=== PATIENT | male | born 1995 | race Caucasian/White ===

== ENCOUNTER 2017-09-10 15:40 | Outpatient (CLI) | payer OTHER ==
--- NOTE | 2017-09-10 18:21 | RAD ---
RIGHT FOOT THREE VIEWS 09/10/17 No fracture or periosteal reaction was seen. All bony structures appeared intact. IMPRESSION: No acute findings. POS: HOME
== END 2017-09-10 15:41 | disposition home or self-care (01) ==
LOC: BURRAD 15:40
DX: S99.921A Unspecified injury of right foot, initial encounter (principal)

== ENCOUNTER 2017-11-09 21:34 | Emergency (ER) | payer OTHER, SELFPAY ==
[2017-11-09] MEDS ORDERED: Dexamethasone 4 mg/ml Vial ONE (21:45)
[2017-11-09] MEDS ORDERED: Ibuprofen 200 MG TAB ONE (21:45)
[2017-11-09] MEDS ORDERED: AMOXicillin 250 MG CAP ONE (21:45)
== END 2017-11-09 21:35 | disposition home or self-care (01) ==
LOC: BURERS 21:34
DX: J03.90 Acute tonsillitis, unspecified (principal); F17.210 Nicotine dependence, cigarettes, uncomplicated; Z79.899 Other long term (current) drug therapy
CPT/HCPCS: 99282; J1100

== ENCOUNTER 2019-10-23 20:00 | Emergency (ER) | payer SELFPAY | END 2019-10-23 20:27 | disposition home or self-care (01) | LOC: BURERS 20:00 | DX: S30.812A Abrasion of penis, initial encounter (principal); N48.5 Ulcer of penis; F17.210 Nicotine dependence, cigarettes, uncomplicated; X58.XXXA Exposure to other specified factors, initial encounter | CPT/HCPCS: 99282 ==

== ENCOUNTER 2019-10-30 00:01 | Emergency (ER) | payer SELFPAY ==
[2019-10-30] MEDS ORDERED: Doxycycline 100 MG CAP ONE (00:20)
[2019-10-30 15:32] LABS: Syphilis Antibody Index 5.87 S/CO (<1.00 Non-Reactive)
[2019-10-30 18:12] LABS: Syphilis Antibody INDETERMINATE (Nonreactive)
== END 2019-10-30 00:34 | disposition home or self-care (01) ==
LOC: BURERS 00:01
DX: A51.0 Primary genital syphilis (principal); F17.210 Nicotine dependence, cigarettes, uncomplicated
CPT/HCPCS: 86593; 86780; 99283

== ENCOUNTER 2020-06-19 19:49 | Emergency (ER) | payer SELFPAY ==
[2020-06-19 20:21] LABS: Mean Corpuscular Hemoglobin 30.4 pg (27.0-31.0); Mean Corpuscular Volume 92.1 fL (78.0-98.0); Mean Platelet Volume 12.3 fL (7.4-10.4); Platelet Count 178 thou/uL (130-400); RBC Distribution Width 12.8 % (11.5-14.5); Red Blood Cell (RBC) Count 5.26 mill/uL (4.70-6.10); White Blood Cell (WBC) Count 17.9 thou/uL (4.8-10.8)
[2020-06-19] MEDS ORDERED: Morphine 4 MG/ML VIAL ONE (20:21)
[2020-06-19] MEDS ORDERED: Morphine 2 MG/ML VIAL ONE (20:21)
[2020-06-19 20:39] LABS: ALT (SGPT) 49 U/L (8-55); AST (SGOT) 29 U/L (5-34); Albumin 4.2 g/dL (3.5-5.0); Alkaline Phosphatase 80 U/L (40-110); Anion Gap 15 mmol/L (10-20); BUN (Urea Nitrogen) 12 mg/dL (8.9-20.6); Bilirubin, Total 0.2 mg/dL (0.2-1.2); Calc. Creatinine Clearance 0 mL/min (70-130); Calcium 9.4 mg/dL (7.8-10.44); Carbon Dioxide 28 mmol/L (22-29); Chloride 102 mmol/L (98-107); Globulin 2.4 g/dL (2.4-3.5); Glucose 79 mg/dL (70-105); Potassium 4.4 mmol/L (3.5-5.1); Protein, Total 6.6 g/dL (6.0-8.3); Sodium 141 mmol/L (136-145)
[2020-06-19 20:45] LABS: #Basophils 0.2 thou/uL (0.0-0.2); #Eosinphils 0.3 thou/uL (0.0-0.7); #Lymphocytes 2.2 thou/uL (1.20-3.40); #Monocytes 1.2 thou/uL (0.11-0.59); #Neutrophils 13.9 thou/uL (1.40-6.50); %Eosinophils 1.8 % (0.0-10.0); %Lymphocytes 12.6 % (21.0-51.0); %Monocytes 6.7 % (0.0-10.0); %Neutrophils 77.9 % (42.0-75.0); Large Platelets SLIGHT; MDiff Complete? YES; Platelet Morphology Comment Appears Adequate; RBC Morphology Normal
[2020-06-19] MEDS ORDERED: Bacitracin 1 PK ONE (21:17)
== END 2020-06-19 21:40 | disposition home or self-care (01) ==
LOC: BURERS 19:49
DX: S09.90XA Unspecified injury of head, initial encounter (principal); S93.602A Unspecified sprain of left foot, initial encounter; S50.02XA Contusion of left elbow, initial encounter; S50.01XA Contusion of right elbow, initial encounter; F17.210 Nicotine dependence, cigarettes, uncomplicated; V89.2XXA Person injured in unspecified motor-vehicle accident, traffic, initial encounter
CPT/HCPCS: 36415; 70450; 71045; 72125; 80053; 85025; 96372; J2270

== ENCOUNTER 2020-08-03 06:52 | Emergency (ER) | payer SELFPAY ==
[2020-08-03] MEDS ORDERED: Cephalexin 250 MG CAP ONE (07:24)
[2020-08-03] MEDS ORDERED: HYDROcodone/Acetaminophen 5/325 mg Tablet ONE (07:24)
[2020-08-03] MEDS ORDERED: Sulfameth/Trimethoprim DS 800-160mg TAB ONE (07:24)
== END 2020-08-03 07:28 | disposition home or self-care (01) ==
LOC: BURERS 06:52
DX: H60.11 Cellulitis of right external ear (principal); F17.210 Nicotine dependence, cigarettes, uncomplicated

== ENCOUNTER 2022-06-27 14:08 | Emergency (ER) | payer SELFPAY ==
[~2022-06-27 14:08] MED LIST: Iopamidol 370 76% 100 ML VIAL ONE
[2022-06-27 14:50] LABS: Bilirubin Negative (Negative); Blood, Urine Moderate (Negative); Clarity Clear (Clear); Glucose, Urine (Dipstick) Negative (Negative); Ketone, Urine Negative (Negative); Leukocyte Negative (Negative); Nitrite Negative (Negative); Protein, Urine (Dipstick) Negative (Neg-Trace); Specific Gravity, Urine 1.015 (1.005-1.030); Urobilinogen 0.2 mg/dL (Less than 2); pH, Urine 6.5 (5.0-9.0)
[2022-06-27 14:53] LABS: Bacteria/HPF None Seen HPF (None Seen); Squamous Epithelial 0-3 HPF (0-3); WBC/HPF 0-3 HPF (0-3)
[2022-06-27 15:16] LABS: #Basophils 0.1 thou/uL (0.0-0.2); #Eosinphils 0.3 thou/uL (0.0-0.7); #Lymphocytes 3.5 thou/uL (1.20-3.40); #Monocytes 0.5 thou/uL (0.11-0.59); #Neutrophils 3.1 thou/uL (1.40-6.50); %Basophils 1.1 % (0.0-1.0); %Eosinophils 4.3 % (0.0-10.0); %Lymphocytes 46.4 % (21.0-51.0); %Monocytes 6.3 % (0.0-10.0); Mean Corpuscular HGB CONC 33.4 g/dL (32.0-36.0); Mean Corpuscular Hemoglobin 29.9 pg (27.0-31.0); Mean Corpuscular Volume 89.4 fl (78.0-98.0); Mean Platelet Volume 11.1 fL (7.4-10.4); Platelet Count 217 10x3/uL (130-400); RBC Distribution Width 12.2 % (11.5-14.5); Red Blood Cell (RBC) Count 5.69 mill/uL (4.70-6.10); White Blood Cell (WBC) Count 7.5 10x3/uL (4.8-10.8)
[2022-06-27 15:30] LABS: ALT (SGPT) 27 U/L (8-55); AST (SGOT) 21 U/L (5-34); Alkaline Phosphatase 67 U/L (40-110); Anion Gap 13 mmol/L (10-20); BUN (Urea Nitrogen) 9 mg/dL (8.9-20.6); Bilirubin, Total 0.7 mg/dL (0.2-1.2); Calc. Creatinine Clearance 0 mL/min (70-130); Calcium 10.3 mg/dL (7.8-10.44); Carbon Dioxide 27 mmol/L (22-29); Chloride 105 mmol/L (98-107); Estimated GFR 106; Globulin 2.9 g/dL (2.4-3.5); Glucose 95 mg/dL (70-105); Potassium 4.3 mmol/L (3.5-5.1); Protein, Total 7.9 g/dL (6.0-8.3); Sodium 141 mmol/L (136-145)
[2022-06-28 13:05] LABS: Chlam.trachomatis by PCR,Urine Not Detected (NotDetected); GC N.gonorrhoeae PCR,UrineVOID Not Detected (NotDetected)
== END 2022-06-27 16:44 | disposition home or self-care (01) ==
LOC: BURERS 14:08
DX: R31.9 Hematuria, unspecified (principal); F17.210 Nicotine dependence, cigarettes, uncomplicated
CPT/HCPCS: 36415; 74177; 80053; 81003; 81015; 85025; 87491; 87591; Q9967